=== PATIENT | female | born 1935 | race Caucasian/White ===

== ENCOUNTER 2017-04-14 11:18 | Observation (INO) | payer MEDICARE ==
[~2017-04-14] VITALS: Ht 157.5 cm; Wt 67.5 kg
[~2017-04-14 11:18] MED LIST: ASPI-973 PO; CHOL10008 PO; CYAN10008 PO; DIVA250T2 PO; METO50TA3 PO; MIRT15TA6 PO; OMPR20CCR PO; PRAV40TA PO; QUET25TA73 PO; QUET50TA PO
[2017-04-14 11:27] VITALS: BP 138/99; PULSE 67; RESP 16; O2SAT 98
[2017-04-14 12:37] LABS: BASOPHILS % (AUTO) 0.3 % (0-3); MONOCYTES % (AUTO) 9.6 % (4-12); Mean Corpuscular Hemoglobin 30.6 pg (27.0-35.0); NEUTROPHILS % (AUTO) 55.9 % (40-74); Platelet Count 186 bil/L (150-400)
[2017-04-14 13:35] LABS: Magnesium 1.8 mg/dL (1.6-2.6)
--- NOTE | 2017-04-14 14:24 | ED.REPORT ---
HPI-Neurologic Deficit Date of Service Apr 14, 2017 ED Provider: Michelle Gomes History of Present Illness: termors to the point of falling. tremors lasting 20 minutes yesterday. has been once in a while but has been increasing in the last month. primary care is Dr. Duong.REcent increase of serouqel to 300 mg in the last 3 months. Medication was increased because of violent behavior, hitting. Nursing Notes Stated Complaint: SEVERE TREMORS Chief Complaint: General Complaint Nursing Notes Reviewed: Yes Allergies: Coded Allergies: atenolol (Verified Allergy, Unknown, 04/14/17) losartan (Verified Allergy, Unknown, 04/14/17) verapamil (Verified Allergy, Unknown, 04/14/17) Scheduled Aspirin (Aspirin) 81 Mg Tablet 81 MG PO DAILY Cholecalciferol (Vitamin D3) (Vitamin D3) 1,000 Unit Tab.chew 1,000 UNIT PO DAILY Cyanocobalamin (Vitamin B-12) (Vitamin B-12) 1,000 Mcg Tablet 1,000 MCG PO DAILY Divalproex ER (Divalproex ER) 250 Mg Tab.er.24h 250 MG PO HS Metoprolol Tartrate (Metoprolol Tartrate) 50 Mg Tablet 50 MG PO BID Mirtazapine (Mirtazapine) 15 Mg Tablet 15 MG PO HS Omeprazole (Omeprazole) 20 Mg Capsule.dr 20 MG PO DAILY Quetiapine Fumarate (Quetiapine Fumarate) 100 Mg Tablet 100 MG PO TID Spironolactone (Spironolactone) 25 Mg Tablet 25 MG PO DAILY Scheduled PRN ([C Abh0.5/12.5/0.5 Ge]) 0.5 ML TOP Q6 HOURS PRN PRN For Agitation ([complete enema]) 1 DOSE RECTAL every three days PRN PRN For Constipation ([guiatuss DM syrup]) 5 ML PO q6 hours PRN PRN For Cough Acetaminophen (Acetaminophen) 325 Mg Capsule 325 MG PO q6 hours PRN PRN For Pain Acetaminophen (8Hr Arthritis Pain) 650 Mg Tablet.er 650 MG MS q6 hours PRN PRN For Pain Bisacodyl (Dulcolax Rectal) 10 Mg Supp.rect 10 MG RC DAILY PRN PRN For Constipation Lorazepam (Lorazepam) 0.5 Mg Tablet 0.5 MG PO q8 hours PRN PRN For Anxiety Mag Hydrox/Al Hydrox/Simeth (Antacid M Liquid) 355 Ml Oral.susp 30 ML PO DAILY PRN PRN For Dyspepsia or Heartburn Magnesium Hydroxide (Milk of Magnesia) 400 Mg/5 Ml Oral.susp 30 ML PO DAILY PRN PRN For Constipation General Time Seen by Provider: 14:24 [facility] Chief Complaint Falling, Seizure Hx Obtained From: Daughter Sudden in Onset?: No Onset Occurred: More than a week ago... (1 month) Risk Factors CVA Risk Stratification Age >60 Past Medical History Past Medical History vascular degenerative dementia hypertension stroke Diabetes Mellitus Past Surgical History Reports: Hysterectomy Smoking History Former Smoker Social History Alcohol Use: Denies alcohol use Drug Use: Denies drug use Other Social History: Good social support, Occupation lives at home she is at [employer] 04/14/2017 Ambulatory Status Independent Review of Systems Basic Review of Systems ENT: Hearing NL, No pain, No nasal congestion, No pharyngeal pain Endocrine: No cold intolerance, No heat intolerance, No weight gain, No weight loss Physical Exam Initial Vital Signs Vital Signs (First) Date Time Temp Pulse Resp B/P Pulse Ox O2 Delivery O2 Flow Rate FiO2 04/14/17 11:27 36.6 67 16 138/99 98 Room Air Initial VS: Reviewed, Vital signs normal ENT: Mucous membranes moist, Conjunctiva normal, No scleral icterus Neck: Supple, Non-tender, Full range of motion Abdomen / GI: Soft, Non-tender, No guarding, No rebound, No distention Back: No CVA tenderness Lymphatic: No lymphadenopathy Extremities: Vascular intact, Neuro intact, No swelling, No tenderness Skin: Warm, Dry, No cyanosis Psychiatric: Mood/affect normal, Behavior normal, Normal thought content General/Constitutional: Awake patient sedated but arousable, no sedation meds given in ER Head / Eyes: Atraumatic, Normocephalic, PERRL Respiratory / Chest: Atraumatic, Breath sounds NL, Breath sounds = bilat Cardiovascular: Heart rate NL, Regular rhythm, Heart sounds NL Mental Status: Positive: Confused, Pharmacologically sedated no tremor noted at exam, daughter provides images of what appears to be seizures, have started in the last month Abdomen: Atraumatic, Soft, Non-tender Interpretation & Diagnostics Lab Results Interpretation Result Diagram: 04/14/17 1227 04/14/17 1227 Test 04/14/17 12:27 04/14/17 13:27 04/14/17 14:52 04/14/17 16:51 White Blood Count 6.0th/mm3 (3.8-10.1) Red Blood Count 4.58mil/mm3 (3.90-5.20) Hemoglobin 14.0g/dL (12.0-15.6) Hematocrit 41.2% (35.0-46.0) Mean Corpuscular Volume 90.0fL (81-100) Mean Corpuscular Hemoglobin 30.6pg (27.0-35.0) Mean Corpuscular Hemoglobin Concent 34.0% (32.0-37.0) Red Cell Distribution Width 12.7% (12.3-15.4) Platelet Count 186bil/L (150-400) Neutrophils (%) (Auto) 55.9% (40-74) Lymphocytes (%) (Auto) 32.7% (14-46) Monocytes (%) (Auto) 9.6% (4-12) Eosinophils (%) (Auto) 1.0% (0-5) Basophils (%) (Auto) 0.3% (0-3) Sodium Level 142mEq/L (134-144) Potassium Level 4.4mEq/L (3.5-5.2) Chloride Level 101mEq/L (97-108) Carbon Dioxide Level 28mmol/L (18-29) Blood Urea Nitrogen 14mg/dL (8-27) Creatinine 0.88mg/dL (0.57-1.00) Estimat Glomerular Filtration Rate 89mL/min (>59) Glucose Level 108mg/dL (60-99) Calcium Level 9.8mg/dL (8.5-10.1) Total Bilirubin 0.4mg/dL (0.0-1.2) Aspartate Amino Transf (AST/SGOT) 12U/L (0-50) Alanine Aminotransferase (ALT/SGPT) 8U/L (0-32) Alkaline Phosphatase 62U/L (25-165) Total Protein 6.3g/dL (6.4-8.4) Albumin 4.1g/dL (3.4-5.0) Urine Color Straw (YELLOW) Urine Appearance Hazy (CLEAR,HAZY) Urine pH 7.0 (5.0-8.0) Urine Specific Ozan 1.010 (1.003-1.035) Urine Protein Negativemg/dL (NEG,TRACE) Urine Glucose (UA) Negativemg/dL (NEGATIVE) Urine Ketones Negativemg/dL (NEGATIVE) Urine Occult Blood Trace (NEGATIVE) Urine Nitrite Positive (NEGATIVE) Urine Bilirubin Negative (NEGATIVE) Urine Urobilinogen Normalmg/dL (NORMAL) Urine Leukocyte Esterase Small (NEGATIVE) Urine RBC 0-2/hpf (0-2) Urine WBC 11-50/hpf (0-5) Urine Epithelial Cells Occasional/hpf (NONE-MOD) Urine Crystals None seen (NONE SEEN) Urine Bacteria Many/hpf (NONE-FEW) Urine Hyaline Casts None/lpf (NONE) Urine Granular Casts None seen (NONE SEEN) Urine Waxy Casts None seen (NONE SEEN) Urine Red Blood Cell Casts None seen (NONE SEEN) Urine White Blood Cell Casts None seen (NONE SEEN) Urine Mucus None seen (None Seen) Urine Trichomonas None seen (NONE SEEN) Urine Yeast None (NONE SEEN) Urinalysis Comment None Urine Culture Reflexed Indicated Lactic Acid Level 1.0mmol/L (0.4-2.0) Magnesium Level 1.8mg/dL (1.6-2.6) Troponin T < 0.010ug/L (0.0-0.011) Hold Maurice Top Tube Received (Received) Lab Results Interpretation: urine with positive nitrates Re-Eval/Medical Decision Med Decision/Clinical Course 81 year old female presents from [facility] for 1 month hx of "tremors" so severe she is falling. No hx of seizures. Daughter has video of episodes of seizures and pictures of facial damage s/p falling. Patient placed on serouquel for violent behavior. Medication was increased to 300 mg 3 months ago. Urine show infection. Plan is to admit treat the uti and see if behavior improves, if not may need to taper seroquel. Discharge & Departure Impression: Primary Impression: Drug-induced seizure Additional Impression: Urinary tract infection Urinary tract infection type: acute cystitis Hematuria presence: with hematuria Qualified Code: N30.01 - Acute cystitis with hematuria Disposition: ADMITTED TO HOSPITAL Referrals: Carmine Duong MD (PCP) EDSupervising Provider for APC: Jewel Lipscomb MD Attending Statement I discussed case with MEMO Gomes. I evaluated the patient independently and agree with plan as above. In brief 81-year-old female presenting with altered mental status for the past month. She is on Seroquel which she started 3 months ago. She also has UTI. We will admit for altered mental status, UTI. copies to: Carmine Duong MD, Sue ARNP Apr 14, 2017 14:24 Jewel Lipscomb MD Apr 14, 2017 17:48
[2017-04-14 15:23] LABS: APPEARANCE,URINE HAZY (CLEAR,HAZY); COLOR,URINE STRAW (YELLOW); OCCULT BLOOD,URINE TRACE (NEGATIVE); UROBILINOGEN,URINE NORMAL (NORMAL)
--- NOTE | 2017-04-14 15:28 | DRSVH ---
PROCEDURE: CT BRAIN WITHOUT CONTRAST ([id number]) INDICATIONS: new onset seizures TECHNIQUE: Noncontrast 4.5 mm thick angled axial sections acquired from the foramen magnum to the vertex, with c oronal reformats. COMPARISON: [facility], CT, CT BRAIN WO CON, 10/14/2015, 14:34. FINDINGS: Image quality: Partially degraded by motion artifact. CSF spaces: Basal cisterns are patent. No extra-axial fluid collections. The ventricles are symmet eduarda in size and shape. Brain: No intracranial bleeds or masses. There is cerebral volume loss for age, with resultant vent ricular and sulcal prominence. There are periventricular and deep white matter chronic small vessel ischemic changes. There is intracranial internal carotid artery atherosclerosis. Skull and face: Calvarium and visualized facial bones appear intact, without suspicious lesions. Sinuses: Visualized sinuses and mastoids are clear. IMPRESSION: No acute intracranial abnormality. Dictated by: Morro Tarango M.D. on 04/14/2017 at 15:26 Approved by: Morro Tarango M.D. on 04/14/2017 at 15:27
[2017-04-14 15:37] LABS: TROPONIN T < 0.010 ug/L (0.0-0.011)
[2017-04-14 15:40] LABS: Magnesium 1.8 mg/dL (1.6-2.6)
[2017-04-14] MEDS ORDERED: cefTRIAXone Inj 2,000 MG in Dextrose 5% Minibag Plus 50 ML IV ONE (16:00)
[2017-04-14] MEDS ORDERED: 0.9% Sodium Chloride 1,000 ML IV ONE (16:00)
[2017-04-14] MEDS ORDERED: SPIR25TA3 PO (16:39)
[2017-04-14] MEDS ORDERED: ACET325C PO (16:39)
[2017-04-14] MEDS ORDERED: MAG355OR31 PO (16:39)
[2017-04-14] MEDS ORDERED: [UNRECOGNIZED DRUG - CODE] PR (16:39)
[2017-04-14] MEDS ORDERED: DIVA250T12 PO (16:39)
[2017-04-14] MEDS ORDERED: MAGN400O4 PO (16:39)
[2017-04-14] MEDS ORDERED: LORA0.5T PO (16:39)
[2017-04-14] MEDS ORDERED: BISA10SU61 RC (16:39)
[2017-04-14] MEDS ORDERED: QUET100T69 PO (16:39)
[2017-04-14] MEDS ORDERED: OMEP20CA11 PO (16:44)
[2017-04-14] MEDS ORDERED: [UNRECOGNIZED DRUG - OTHER] RECTAL (16:44)
[2017-04-14] MEDS ORDERED: C ABH TOP (16:44)
[2017-04-14] MEDS ORDERED: GUIATUSS DM PO (16:44)
[2017-04-14 16:59] VITALS: BP 156/79; PULSE 58; RESP 16; O2SAT 97
[2017-04-14] MEDS ORDERED: Polyethylene Glycol (PEG) 17 Gm Powder PO PRN (17:55)
[2017-04-14] MEDS ORDERED: Ondansetron 2 mg/mL 2 mL Inj IVPUSH PRN (17:55)
[2017-04-14] MEDS ORDERED: Alum-Mag Hydrox-Simeth 30 mL Suspension PO PRN (17:55)
--- NOTE | 2017-04-14 18:05 | NUR ---
Admission Pt arrived on [facility] to RM [id number], from ED. Pt is alert to self and location. No complains of pain or tremors noted. IV saline locked, no tele in place. Pt able to transfer self from [facility] bed with 1 Per assist. VSS, Family is at bedside assisting with admission process however will not be spending the night. Pt is eating dinner at this time. Call light in reach. 1:1 sitter outside room.
[2017-04-14 18:07] VITALS: BP 155/76; PULSE 83; RESP 20; O2SAT 94
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
[2017-04-14] MEDS ORDERED: [UNRECOGNIZED DRUG - MIXTURE] TOP PRN (19:10)
[2017-04-14] MEDS ORDERED: LORazepam 0.5 mg Tablet PO PRN (19:10)
[2017-04-14] MEDS: Divalproex (QD) 250 mg ER24 Tablet PO SCH (20:17)
--- NOTE | 2017-04-14 23:28 | NUR ---
agitation patient suddenly agitated. yelling. slamming the door. insisting on leaving. unable to calm notified security. notified dr jackson. ordered [facility] bed. patient transferred to [facility]. patient is now sitting in [facility] bed, agrees to rest "until the morning." sitter at bedside. water and toilet have been offered. will cont to monitor.
[2017-04-15] VITALS (7 sets, daily range): BP systolic 170–209; BP diastolic 70–103; PULSE 53–78; RESP 17–20; O2SAT 93–100
[2017-04-15] MEDS: Heparin 5,000 Unit/mL Inj SUBQ SCH ×3 (00:30→16:30)
--- NOTE | 2017-04-15 04:46 | NUR ---
hypertension bp 204/76. plan to recheck in 15 min. patient lying quietly in soma bed. Addendum: 04/15/17 at 0506 by MIRIAM GONZALEZ RN 170/70 left arm
[2017-04-15 05:33] LABS: BASOPHILS % (AUTO) 0.3 % (0-3); MONOCYTES % (AUTO) 10.2 % (4-12); Mean Corpuscular Hemoglobin 30.7 pg (27.0-35.0); Mean Corpuscular Volume 88.4 fL (81-100); NEUTROPHILS % (AUTO) 65.9 % (40-74); Platelet Count 186 bil/L (150-400)
--- NOTE | 2017-04-15 09:30 | NUR ---
Restraints Pt requesting to be out of the [facility] bed for urination, able to ambulate with 1 per assist to BR for void. Pt did not want to go back to bed, up in chair with Lissett alarm. Pt very impulsive, cooperative with staff ambulating in the hallway. 1 per assist, staff alternating walking with the pt. Intentional frequent rounding in place. Addendum: 04/15/17 at 1256 by DAVE MARTE RN Family at bedside, visiting with pt.
--- NOTE | 2017-04-15 10:29 | NUR ---
PT NOTE-- Attempted PT eval and pt declined. Patient up amb'ing with assist of nrsg in hallways and appears to be at baseline for mobility. No PT eval needed per MD at rounds.
--- NOTE | 2017-04-15 15:21 | NUR ---
Social Work: Initial Assessment Data: See initial assessment. Patient is a 81 year old female who was admitted on 04/14/2017 for dementia, new onset of seizures, UTI, and falls per H&P. Patient's insurance is [employer] of [place] Medicare. Patient's PCP is Carmine Duong MD. EMR reviewed. SW met with patient and family to discuss discharge planning. SW role explained. Patient resides at [facility]. Spouse and daughter were at bedside and were in agreement with assisting with assessment. Spouse confirms that he is DPOA and that AD have been completed on patient's behalf. Patient is I at baseline and able to complete all ADLs and care needs. Patient does not drive. Patient does not have any hx of home health services or SNF. Patient does not have any [facility]pc care insurance or VA benefits. Upon discharge, family would like for patient to return to [facility]. Spouse states that transportation will be provided by family. SW provided spouse with a discharge planning checklist booklet and encouraged to call with any questions or concerns. Phone number provided. SW will continue to follow. Assessment: Patient will likely return to [facility]. Plan: Patient will likely return to [facility]. Transportation will be provided by family. SW will continue to follow for needs. GENESIS Almeida Addendum: 04/15/17 at 1531 by DESHAWN GRACE SS Amended: Links added. Addendum: 04/15/17 at 1609 by DESHAWN RGACE SS FILI called [facility] to confirm that patient would be able to return once deemed medically stable for discharge. FILI was informed that patient would be able to return. FILI will continue to follow. GENESIS Almeida
--- NOTE | 2017-04-15 15:52 | NUR ---
Restraints Family left this unit, pt continues to be impulsive, unable to get 1:1 sitter due to staffing. New order requested for restraints. MD advised, new ordered generated as requested. Pt resting in Soma bed at this time. Intentional rounding in place.
[2017-04-15] MEDS ORDERED: cefTRIAXone Inj 2,000 MG in Dextrose 5% Minibag Plus 50 ML IV SCH (16:00)
--- NOTE | 2017-04-15 16:15 | PCM.PNMED ---
Subjective Date of Service Apr 15, 2017 Subjective Pt in [facility] bed overnight due to agitation. Exam Vital Signs Vital Sign - Last Date Time Temp Pulse Resp B/P Pulse Ox O2 Delivery O2 Flow Rate FiO2 04/15/17 11:05 36.4 78 20 182/103 96 Room Air Intake and Output 04/14/17 04/14/17 04/15/17 Cumulative From/Thru 15:00 23:00 07:00 04/14/17 11:27 - 04/15/17 06:35 Intake Total 1000 ml 0 ml 1000 ml Balance 1000 ml 0 ml 1000 ml Intake Oral 0 ml 0 ml IV Total 1000 ml 1000 ml # Voids 3 3 # Bowel Movements 0 0 Exam General: Awake alert lying in hospital bed in no acute distress HEENT: Normocephalic, atraumatic. External ears without defect. Pupils equal, round, and reactive to light and accommodation. Anicteric sclerae, moist conjunctivae, and no lid lag. Oropharynx free of erythema and cobble stoning with moist mucosa. Upper dentures in place Neck: Supple with full range of motion. No jugular venous distension. No thyromegaly. Cardiovascular: Regular rate and rhythm with no murmurs, rubs, or gallops appreciated Pulmonary: Clear to auscultation bilaterally with no crackles, wheezes, or rhonchi. Normal respiratory effort with no use of accessory muscles. Abdomen: Bowel tones present. Soft, nontender, nondistended. Extremities: No clubbing, cyanosis, edema, or lymphadenopathy appreciated. No tremor appreciated. Skin: Normal temperature, turgor, and texture Neurological: Cranial nerves grossly intact. Patient able to follow all commands without difficulty Psychiatric: Appropriate mood, pleasant. A&O 1/4 IVs and Medications Medications Reviewed: Medications were reviewed in detail Lab and Diagnostics Result Diagram: 04/15/1751404/15/17514 X-Rays, CTs and MRIs . CT BRAIN WITHOUT CONTRAST IMPRESSION: No acute intracranial abnormality. Dictated by: Morro Tarango M.D. on 04/14/2017 Assessment & Plan Ms. De La Fuente is a 81-year-old female with past medical history of vascular degenerative dementia, Robson body dementia hypertension, stroke and diabetes mellitus who presented to the ED from memory care facility secondary to myoclonus 1 month Myoclonus. Not present on admission. Under evaluation Possibly secondary to recent increase in Seroquel dose. Seizures less likely. Brain CT as above Dec dose of Seroquel from 100 to 50mg TID. Monitor for agitation. Restraints prn. Patient is currently on divalproex ER at bedtime, which can also be used to treat bipolar, migraines and seizure disorders. We will continue this medication Continue to monitor for seizure-like activity and mild clonus GNR Urinary tract infection. Present on admission. Ongoing Urinalysis shows 11-50 WBCs, small leukocyte esterase and positive nitrite Blood Culture NGTD. Ceftriaxone started 04/14, follow up S&S. Vascular degenerative dementia. Present on admission. Ongoing Continue home meds Hypertension. Present on admission. Ongoing Continue home meds, may be elevated due to agitation. Arthritis. Present on admission. Ongoing Continue home acetaminophen Diabetes Mellitus. Present admission. Ongoing No home diabetic medication A1c- 6.1. Patient Status: Patient admitted under observational status. CODE STATUS: Patient's daughter who is POA does have pulsed form photocopied that states DNR/DNI with comfort measures only. At this time she wishes patient to remain full code, and we will reassess the pulsed form. GI Prophylaxis: H2 beau VTE Prophylaxis: Sub-Q Heparin (Unfractionated) Resuscitation Status: CPR: Attempt Resuscitation Mario Castorena MD Apr 15, 2017 16:15
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
--- NOTE | 2017-04-15 19:06 | NUR ---
PO Seroquel Pt calling out, this RN went to bedside. Pt asking why she has to stay in the enclosed bed, this RN informed pt was for staff safety as pt has been aggressive with staff. Pt initially denied episode of aggression, then apologized about harming staff. Pt agreed to take Rx, Seroquel given with chocolate pudding. Pt pleasant and cooperative. Intentional rounding in place.
[2017-04-15] MEDS: Divalproex (QD) 250 mg ER24 Tablet PO SCH (20:00)
[2017-04-16 00:24] VITALS: BP 150/84; PULSE 67; RESP 17; O2SAT 97
--- NOTE | 2017-04-16 00:36 | NUR ---
SOMA DC'd pt's soma discontinued, 0000. per [employer] pt is still confuse but is cooperative with care. Pt is now sleeping and appears comfortable. Addendum: 04/16/17 at 0552 by JUD ANDUJAR RN Re-ordered soma due to agitation and confusion. Started 0500, pt is confused and agitated. notified and Soma bed restarted. Continuing to monitor.
[2017-04-16] MEDS: Heparin 5,000 Unit/mL Inj SUBQ SCH ×2 (02:06→08:37)
[2017-04-16 05:12] VITALS: BP 166/76; PULSE 61; RESP 17; O2SAT 99
[2017-04-16] MEDS ORDERED: CEFU250T82 PO (11:10)
[2017-04-16] MEDS ORDERED: QUET25TA73 PO (11:10)
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
--- NOTE | 2017-04-16 11:14 | PCM.DIMED ---
Discharge Instructions Date of Service Apr 16, 2017 Dates of Hospitalization Apr 14, 2017 at 17:18 Discharge Diagnosis Discharge Diagnosis Myoclonus. Ecoli Urinary tract infection. Vascular degenerative dementia. Hypertension. Arthritis. Diabetes Mellitus. Medication Instructions Additional med instructions - Decreased dose of Seroquel from 100 to 50mg TID, continue divalproex ER at bedtime. - Continued Antibiotic Ceftin 250 mg twice daily for total 7 days treatment ending 04/20/17. Diet Discharge Diet: No restrictions Activity Discharge Activity: No restrictions Call your provider Call your provider for: Fever or Chills, Shortness of breath Patient Instructions Follow-up plan Follow up with your primary doctor Carmine Duong in 1 week. Review medications including change to Seroquel dosing. Follow-up Provider: Carmine Duong MD Follow-up with PCP in: 1 week Mario Castorena MD Apr 16, 2017 11:14
--- NOTE | 2017-04-16 11:55 | NUR ---
spiritual care: pt request visit attempt; pt sleeping did not rouse to voice
--- NOTE | 2017-04-16 12:23 | NUR ---
Social Work-discharge: Data:EMR reviewed. Pt is on day 2 of hospitalization for dementia per H&P. Pt is medically stable for discharge. FILI spoke with Clarissa at [facility] who is agreeable for pt to return today without an assessment. Clarissa requests Clinicals and discharge information be faxed to [phone]. FILI faxed all information to Clarissa. FILI informed Clarissa that pt's family will be providing transport back to [facility] today. RN to call to arrange. All updated and agreeable to plan. Assessment:Pt who lives in Memory care. Plan:Pt to discharge back to [facility] care today via POV. FILI faxed all discharge information to [facility], [facility] agreeable for pt to return without an assessment. All updated and agreeable to plan. GENESIS Olson
[2017-04-16 13:26] VITALS: BP 150/63; PULSE 65; RESP 18; O2SAT 99
--- NOTE | 2017-04-16 14:35 | NUR ---
Discharge Pt discharged back to [facility] with Daughter via private vehicle. Pt's daughter verbalized understanding of discharge orders and instructions. Clarissa at [facility] r/t pt's constipation, pt was able to have a BM but it was very dry, and recommended Miralax for the next couple of days. Pt walked out with daughter.
== END 2017-04-16 14:41 ==
LOC: SED 11:18 → MPC 17:18 → INTOOBSV 17:18
PROVIDERS: ADMIT Internal Medicine; ATTEND Internal Medicine
DX: G25.3 Myoclonus (principal); N39.0 Urinary tract infection, site not specified; B96.20 Unspecified Escherichia coli [E. coli] as the cause of diseases classified elsewhere; R31.9 Hematuria, unspecified; I67.2 Cerebral atherosclerosis; F01.50 Vascular dementia, unspecified severity, without behavioral disturbance, psychotic disturbance, mood disturbance, and anxiety; I10 Essential (primary) hypertension; E11.9 Type 2 diabetes mellitus without complications; M19.90 Unspecified osteoarthritis, unspecified site; Z86.73 Personal history of transient ischemic attack (TIA), and cerebral infarction without residual deficits; Z87.891 Personal history of nicotine dependence; Z79.82 Long term (current) use of aspirin
CPT/HCPCS: 36415; 70450; 80053; 81000; 83036; 83605; 83735; 84443; 84484; 85025; 87040; 87086; 87088; 87186; 93005; 96365; 99285; G0378; J0696; J1644; J7030